=== PATIENT | female | born 1995 | race Caucasian/White ===

== ENCOUNTER 2016-11-24 15:39 | Emergency (ER) | payer OTHER ==
[~2016-11-24] VITALS: Ht 154.9 cm; Wt 70.3 kg
--- NOTE | 2016-11-24 16:12 | NUR ---
dr kiran at the bedside for eval and exam.
--- NOTE | 2016-11-24 16:26 | NUR ---
Patient discharged to home in stable conditon. Written and verbal after care instructions given. Patient verbalizes understanding of instructions.
== END 2016-11-24 16:30 | disposition home or self-care (01) ==
LOC: ER 15:39
DX: J40 Bronchitis, not specified as acute or chronic (principal); J45.909 Unspecified asthma, uncomplicated; Z88.6 Allergy status to analgesic agent
CPT/HCPCS: 99283; A4663

== ENCOUNTER 2017-01-17 10:10 | Emergency (ER) | payer OTHER ==
[~2017-01-17] VITALS: Ht 157.5 cm; Wt 74.8 kg
--- NOTE | 2017-01-17 11:57 | NUR ---
Patient is resting comfortably in bed with eyes closed, NAD noted, pt is awaiting to be seen by MD.
--- NOTE | 2017-01-17 12:02 | NUR ---
Dr Marshall at the bedside for eval and exam.
[2017-01-17] MEDS ORDERED: ALBUTEROL SULFATE 2.5 MG/3 ML NEBU NEB ONE ×2 (12:15→13:30)
[2017-01-17] MEDS ORDERED: IPRATROPIUM BROMIDE 0.5 MG/2.5 ML NEBU NEB ONE ×2 (12:15→13:30)
[2017-01-17 12:29] LABS: CARBON DIOXIDE 19 mmol/L (21-32); CHLORIDE 106 mmol/L (98-107); CREATININE 0.6 mg/dL (0.6-1.3); GLUCOSE 104 mg/dL (74-106); POTASSIUM 4.2 mmol/L (3.5-5.1); UREA NITROGEN, BLOOD 9 mg/dL (7-18)
[2017-01-17 12:34] LABS: ALKALINE PHOSPHATASE 100 U/L (50-136); BASOPHILS % (AUTO) 0.5 % (0.0-2.0); BILIRUBIN,TOTAL 0.2 mg/dL (0.2-1.0); EOSINOPHILS # (AUTO) 0.3 K/uL (0.0-0.7); EOSINOPHILS % (AUTO) 3.9 % (0.0-7.0); HEMATOCRIT 40.7 % (37-47); HEMOGLOBIN 13.5 G/DL (12.0-16.0); LYMPHOCYTES # (AUTO) 2.4 K/UL (0.8-4.8); LYMPHOCYTES % (AUTO) 28.1 % (20.5-51.5); MEAN CORPUSCULAR HEMOGLOBIN 26.6 UUG (27.0-31.0); MEAN CORPUSCULAR HGB CONC 33 g/dL (32.0-37.0); MEAN CORPUSCULAR VOLUME 80.3 FL (81.0-99.0); MONOCYTES # (AUTO) 0.4 K/UL (0.1-1.30); MONOCYTES % (AUTO) 5.1 % (0.0-11.0); NEUTROPHILS # (AUTO) 5.3 K/UL (1.8-8.9); NEUTROPHILS % (AUTO) 62.4 % (38.5-71.5); PLATELET COUNT (AUTO) 272 K/UL (150-450); RED BLOOD CELL COUNT(AUTO) 5.07 MIL/UL (4.2-5.4); TOTAL PROTEIN, SERUM 7.6 g/dL (6.4-8.2); WHITE BLOOD COUNT (AUTO) 8.4 K/UL (4.0-11.2)
[2017-01-17] MEDS ORDERED: ALBUTEROL SULFATE 2.5 MG/ 0.5 ML NEBU ONE ×2 (12:39→13:54)
[2017-01-17] MEDS ORDERED: IPRATROPIUM BROMIDE 0.5 MG/2.5 ML NEBU ONE ×2 (12:39→13:54)
[2017-01-17 12:44] LABS: BILIRUBIN,DIRECT < 0.1 mg/dL (0.0-0.2)
[2017-01-17 13:10] LABS: ALANINE AMINOTRANSFERASE 38 U/L (14-59); ASPARTATE AMINOTRANSFERASE 166 U/L (15-37)
[2017-01-17] MEDS ORDERED: predniSONE 10 MG TABLET PO ONE (13:30)
[2017-01-17] MEDS ORDERED: predniSONE 20 MG TABLET ONE (13:53)
--- NOTE | 2017-01-17 14:10 | NUR ---
PT C/O CHEST PRESSURE AND EPIGASTRIC PAIN, MD AWARE. PT ALSO APPEARS ANXIOUS.
[2017-01-17] MEDS ORDERED: MAG HYDROX/AL HYDROX/SIMETH 30 ML LIQUID UDC PO ONE (14:15)
[2017-01-17] MEDS ORDERED: LIDOCAINE VISCUS 2% 15 ML UDC MM ONE (14:15)
[2017-01-17] MEDS ORDERED: LIDOCAINE VISCUS 2% 15 ML UDC ONE (14:27)
[2017-01-17] MEDS ORDERED: MAG HYDROX/AL HYDROX/SIMETH 30 ML LIQUID UDC ONE (14:27)
--- NOTE | 2017-01-17 14:37 | NUR ---
PT STATES FEELING BETTER, AND PAIN IS GONE.
[2017-01-17 14:52] VITALS: BP 122/67
--- NOTE | 2017-01-17 14:56 | NUR ---
Patient discharged to home in stable conditon. Written and verbal after care instructions given. Patient verbalizes understanding of instructions.
== END 2017-01-17 14:56 | disposition home or self-care (01) ==
LOC: ER 10:10
DX: J45.901 Unspecified asthma with (acute) exacerbation (principal); Z88.6 Allergy status to analgesic agent
CPT/HCPCS: 36415; 70030-TC; 71010; 84703; 85025; 93005; A4663; J3590; J7512